=== PATIENT | male | born 1990 | race African-American/Black ===

== ENCOUNTER 2018-04-14 02:57 | Inpatient (IN) | payer OTHER ==
[~2018-04-14] VITALS: Ht 182.9 cm; Wt 72.2 kg
[2018-04-14] VITALS (13 sets, daily range): BP systolic 96–133; BP diastolic 66–99
[2018-04-14 03:19] LABS: HEMATOCRIT 51.7 % (38.0-50.0); HEMOGLOBIN 16.5 G/DL (12.5-16.6); MCH 30.7 PG (29.0-34.0); MCHC 31.9 G/DL (30.0-36.0); MCV 96.1 FL (86-99); PLATELET COUNT 319 K/uL (156-360); RBC DIS.WIDTH-CV 12.1 % (11.8-14.6); RBC DIS.WIDTH-SD 43.1 % (39-53); RED BLOOD COUNT 5.38 M/uL (4.00-5.50); WHITE BLOOD COUNT 8.5 K/uL (4.1-10.2)
[2018-04-14 03:31] LABS: ALBUMIN 4.9 g/dL (3.2-4.8); CHLORIDE 104 mEq/L (99-109); POTASSIUM 4.2 mEq/L (3.7-5.4); SODIUM 147 mEq/L (136-147)
[2018-04-14 03:33] LABS: GLUCOSE 168 mg/dL (70-99)
[2018-04-14 03:34] LABS: TOTAL PROTEIN 8.2 g/dL (6.4-8.3)
[2018-04-14 03:35] LABS: TOTAL BILIRUBIN 0.7 mg/dL (0.0-1.0)
[2018-04-14 03:36] LABS: SERUM ETHYL ALCOHOL 15 mg/dL
[2018-04-14 03:37] LABS: CREATININE 1.8 mg/dL (0.6-1.3)
[2018-04-14 03:38] LABS: ALKALINE PHOSPHATASE 124 IU/L (3-129)
[2018-04-14 03:39] LABS: AST (GOT) 37 IU/L (2-34); UREA NITROGEN (BUN) 14 mg/dL (9-23)
[2018-04-14 03:41] LABS: ACETAMINOPHEN (TYLENOL) < 10 mcg/mL (10-30); ALT (GPT) 25 IU/L (3-49); CREATINE KINASE 421 IU/L (1-294); SALICYLATE < 5.0 MG/DL (15-30)
[2018-04-14 03:44] LABS: GFR ESTIMATE (CALCULATED) 47 mL/min/ (58.99-99999); TROP-I INTERPRETATION NEGATIVE; TROPONIN-I < 0.01 ng/mL (0.0-0.30)
[2018-04-14 04:31] LABS: CARBOXY HGB 3.1 % (0-5); COMMENTS - BLOOD GASES C+; DEVICE NC; O2 FLOW 2 L/MIN; PCO2 35 mm Hg (35-45); PO2 179 mm Hg (80-100); SITE RB; TOTAL RESP RATE 12 resp/min; pH 7.26 (7.35-7.45)
[2018-04-14 04:32] LABS: BASE EXCESS -10.4 mEq/L (-3 to +3); BICARBONATE 15.7 mEq/L (22-26)
[2018-04-14 05:26] LABS: APPEARANCE CLEAR ((CLEAR)); BILIRUBIN NEGATIVE; BLOOD SMALL; COLOR YELLOW ((YELLOW)); GLUCOSE (STRIP) NEGATIVE; KETONES NEGATIVE; LEUKOCYTES NEGATIVE; NITRITE NEGATIVE; PROTEIN (STRIP) 100; SPECIFIC GRAVITY 1.017 (1.000-1.030)
[2018-04-14 05:30] LABS: BACTERIA NONE SEEN /HPF; EPITHELIAL CELLS RARE /HPF; MUCUS TRACE /LPF; RED BLOOD CELLS 0-5 /HPF (0-5); WHITE BLOOD CELLS 0-5 /HPF (0-5)
[2018-04-14 05:32] LABS: AMPHETAMINE NEGATIVE (500 ng/mL); BARBITURATES NEGATIVE (200 ng/mL); BENZODIAZEPINES NEGATIVE (150 ng/mL); BUPRENORPHINE NEGATIVE (10 ng/mL); COCAINE NEGATIVE (150 ng/mL); METHADONE NEGATIVE (200 ng/mL); METHAMPHETAMINE NEGATIVE (500 ng/mL); OPIATES (MORPHINE) NEGATIVE (100 ng/mL); OXYCODONE NEGATIVE (100 ng/mL); PHENCYCLIDINE NEGATIVE (25 ng/mL); PROPOXYPHENE NEGATIVE (300 ng/mL); THC CANNABINOIDS PRESUMPTIVE POSITIVE (50 ng/mL); TRICYCLIC ANTIDEPRESSANTS NEGATIVE (300 ng/mL)
[2018-04-14 10:25] LABS: CHLORIDE 111 MEQ/L (99-109); POTASSIUM 4.1 MEQ/L (3.7-5.4); UREA NITROGEN (BUN) 13 mg/dL (9-23)
[2018-04-14 10:27] LABS: CREATININE 1.3 MG/DL (0.6-1.3); GFR ESTIMATE (CALCULATED) > 59 mL/min/ (58.99-99999); GLUCOSE 91 mg/dL (70-99); SODIUM 137 MEQ/L (136-147)
== END 2018-04-14 19:15 | disposition left against medical advice (07) | DRG 641 ==
LOC: EDBD 02:57 → EME 02:57 → EDOF 04:36 → ENRESERV 04:37 → ENRESERVDT 04:41 → ENRESERVTM 04:41 → 4WEST 05:51
PROVIDERS: Emergency Medicine; Surgery
DX: E87.2 Acidosis (principal); N17.9 Acute kidney failure, unspecified; I47.1 Supraventricular tachycardia; F05 Delirium due to known physiological condition; E86.0 Dehydration; F17.210 Nicotine dependence, cigarettes, uncomplicated; Z78.1 Physical restraint status; R45.1 Restlessness and agitation; R61 Generalized hyperhidrosis; T44.901A Poisoning by unspecified drugs primarily affecting the autonomic nervous system, accidental (unintentional), initial encounter; F06.8 Other specified mental disorders due to known physiological condition; I95.9 Hypotension, unspecified; R45.6 Violent behavior; F99 Mental disorder, not otherwise specified; E86.1 Hypovolemia; Z91.19 Patient's noncompliance with other medical treatment and regimen
CPT/HCPCS: 36600; 71045; 80048 91; 80053; 81003; 82550; 82800; 82803; 83605; 84484; 84999; 85027; 87641; 93005; 99281; 99285; G0480; J1630; J1644; J2060; J7030; S0028